=== PATIENT | female | born 1975 | race Caucasian/White ===

== ENCOUNTER 2017-05-11 11:16 | Emergency (ER) | payer OTHER ==
[2017-05-11] MEDS: CLINDAMYCIN 600 MG/D5W (PMX) 50 ML IVPB (13:50)
== END 2017-05-11 14:55 | disposition home or self-care (01) ==
LOC: FTE 11:16
DX: K04.7 Periapical abscess without sinus (principal)
CPT/HCPCS: 96374; 99284-25